=== PATIENT | female | born 1965 | race African-American/Black ===

== ENCOUNTER 2023-12-04 09:16 | Outpatient (AMB) | payer OTHER, SELFPAY ==
--- NOTE | 2023-12-04 10:31 | MHC.OFFWIV ---
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 headache, congestion, sinus pressure and dry cough She did not take a covid test Has been afebrile x 3 days Taking tylenol/motrin which helped with fever Took OTC medicine for cough without relief Concerned she has a sinus infection No CP or SOB PFSH Social History Patient Tobacco Use Status: Never used Tobacco Review of Systems Const Reports chills, Reports fatigue, Reports fever(s) and Reports headache(s) (sinus forehead) Eyes Denies blurry vision ENT Denies ear discharge, Reports headache(s) (sinus forehead), Reports nasal congestion, Reports sinus pain, Reports sinus pressure, Reports sore throat and Denies throat swelling Card Denies chest pain and Denies chest pain at rest Resp Denies chest congestion, Reports cough and Denies hemoptysis GI Denies abdominal pain Musc Reports myalgias Neuro Reports headache(s) (sinus forehead) Endo Reports fatigue Aller/Immun Denies throat swelling Physical Exam Vital Signs: Last Vital Signs Temp 97.2 F 12/04/23 10:49 Pulse 95 12/04/23 10:49 BP 150/90 H 12/04/23 10:49 Pulse Ox 99 12/04/23 10:49 Oxygen Delivery Method Room Air 12/04/23 10:49 BMI result Body Mass Index 28.3 General: Non-toxic, NAD. Speaking full sentences. Skin: Warm dry throughout Eye: EOMI HENT: Airway patent. Uvula midline. No pharyngeal erythema or edema. 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 Bilateral canals clear. Slight fluid behind TMs. TM non-erythematous, non-bulging. No TM perforation or hemotympanum noted. +frontal sinus tenderness L >R Respiratory: CTA bilaterally. No wheezes, rales or rhonchi Cardiac: RRR. No murmur MSK: Full ROM extremities. Neurology: A/O No aphasia or facial droop. Gait without abnormality Psych: Good mood and affect Assessment & Plan Assessment & Plan (1) Sinusitis: Code(s): J32.9 - Chronic sinusitis, unspecified Qualifiers: Sinusitis location: frontal Chronicity: acute Recurrence: non-recurrent Qualified Code(s): J01.10 - Acute frontal sinusitis, unspecified Plan: Patient seen and evaluated. Lungs CTA COVID; + Will use nasal steroid and tessalon for cough Discussed no need for antibiotic due to viral infection She was advised to mask for an additional 4 days ER if worse Patient gave verbal understanding and had no additional questions or concerns at time of discharge All questions answered (2) COVID: Code(s): U07.1 - COVID-19 Plan: see above Orders: Orders BinaxNOW Covid-19 Ag Today J32.9 - Chronic sinusitis, unspecified Medications: New ipratropium bromide administer into each nostril 2 sprays intranasal BID-TID PRN 30 mL 0RF allergy symptoms 1 week U07.1 - COVID-19 benzonatate 100 mg PO BID-TID PRN 14 caps 0RF cough Coding Level of Care Code New Pt Level 3 (87812) Diagnoses Acute non-recurrent frontal sinusitis J01.10 Sinusitis location: frontal Chronicity: acute Recurrence: non-recurrent COVID U07.1
[2023-12-04 10:49] VITALS: BP 150/90; PULSE 95; TEMP 36.2; O2SAT 99; BMI 28.3
== END 2023-12-04 11:14 | disposition home or self-care (01) ==
PROVIDERS: Visit Provider Physician Assistant
DX: J01.10 Acute frontal sinusitis, unspecified (principal); U07.1 COVID-19
CPT/HCPCS: 99203

== ENCOUNTER 2023-12-04 11:06 | Outpatient (REF) | payer OTHER, SELFPAY | END 2023-12-04 11:07 | disposition home or self-care (01) | LOC: HO.HMGCLDS 11:06 | PROVIDERS: PCP Family Medicine; Visit Provider Physician Assistant | DX: Z11.52 Encounter for screening for COVID-19 (principal); J32.9 Chronic sinusitis, unspecified | CPT/HCPCS: 87811 ==